=== PATIENT | male | born 1940 | race Caucasian/White ===

== ENCOUNTER 2017-04-11 13:27 | Emergency (ER) | payer OTHER ==
[~2017-04-11] VITALS: Ht 182.9 cm; Wt 102.1 kg
[~2017-04-11 13:27] MED LIST: CITALOPRAM HBR20 MG PO; DIGOXIN125 MCG PO; LOSARTAN POTAS100 MG PO; METFORMIN HCL500 MG PO
[2017-04-11 15:31] LABS: HEMATOCRIT 41.9 % (38.0-50.0); HEMOGLOBIN 13.5 G/DL (12.5-16.6); MCH 28.2 PG (29.0-34.0); MCHC 32.2 G/DL (30.0-36.0); MCV 87.7 FL (86-99); PLATELET COUNT 238 K/uL (156-360); RBC DIS.WIDTH-CV 14.8 % (11.8-14.6); RBC DIS.WIDTH-SD 47.8 % (39-53); RED BLOOD COUNT 4.78 M/uL (4.00-5.50); WHITE BLOOD COUNT 8.6 K/uL (4.1-10.2)
[2017-04-11 15:40] LABS: CHLORIDE 103 mEq/L (99-109); POTASSIUM 4.4 mEq/L (3.7-5.4); SODIUM 140 mEq/L (136-147)
[2017-04-11 15:42] LABS: GLUCOSE 85 mg/dL (70-99)
[2017-04-11 15:46] LABS: CREATININE 1.1 mg/dL (0.6-1.3); GFR ESTIMATE (CALCULATED) > 59 mL/min/ (58.99-99999)
[2017-04-11 15:47] LABS: UREA NITROGEN (BUN) 15 mg/dL (9-23)
[2017-04-11 17:24] VITALS: BP 120/78
== END 2017-04-11 17:24 | disposition home or self-care (01) ==
LOC: EME 13:27
PROVIDERS: Nurse Practitioner Family
DX: R60.0 Localized edema (principal); L40.9 Psoriasis, unspecified; E11.9 Type 2 diabetes mellitus without complications; Z79.84 Long term (current) use of oral hypoglycemic drugs; E78.5 Hyperlipidemia, unspecified; I10 Essential (primary) hypertension; I25.2 Old myocardial infarction; J44.9 Chronic obstructive pulmonary disease, unspecified; Z86.73 Personal history of transient ischemic attack (TIA), and cerebral infarction without residual deficits; Z87.891 Personal history of nicotine dependence
CPT/HCPCS: 80048; 83880; 85027; 93971; 99281; 99284

== ENCOUNTER 2017-04-17 16:02 | Emergency (ER) | payer OTHER ==
[~2017-04-17] VITALS: Ht 182.9 cm; Wt 101.2 kg
[2017-04-17 16:43] LABS: HEMATOCRIT 44.2 % (38.0-50.0); HEMOGLOBIN 14.1 G/DL (12.5-16.6); MCHC 31.9 G/DL (30.0-36.0); MCV 87.9 FL (86-99); PLATELET COUNT 237 K/uL (156-360); RBC DIS.WIDTH-CV 15.1 % (11.8-14.6); RED BLOOD COUNT 5.03 M/uL (4.00-5.50)
[2017-04-17 16:55] LABS: ALBUMIN 3.9 g/dL (3.2-4.8); CHLORIDE 105 mEq/L (99-109); POTASSIUM 5.2 mEq/L (3.7-5.4); SODIUM 136 mEq/L (136-147)
[2017-04-17 16:58] LABS: GLUCOSE 124 mg/dL (70-99); TOTAL PROTEIN 6.8 g/dL (6.4-8.3)
[2017-04-17 17:00] LABS: TOTAL BILIRUBIN 0.6 mg/dL (0.0-1.0)
[2017-04-17 17:01] LABS: CREATININE 1.2 mg/dL (0.6-1.3); GFR ESTIMATE (CALCULATED) > 59 mL/min/ (58.99-99999)
[2017-04-17 17:02] LABS: ALKALINE PHOSPHATASE 111 IU/L (3-129)
[2017-04-17 17:03] LABS: AST (GOT) 15 IU/L (2-34); UREA NITROGEN (BUN) 12 mg/dL (9-23)
[2017-04-17 17:05] LABS: ACETAMINOPHEN (TYLENOL) < 10 mcg/mL (10-30); ALT (GPT) 10 IU/L (3-49); SALICYLATE < 5.0 MG/DL (15-30)
[2017-04-17 18:52] VITALS: BP 141/71
[2017-04-18] MEDS ORDERED: KETOCONAZOLE60 GM TP (12:31)
[2017-04-18] MEDS ORDERED: SILVADENE,SSD,T50 GM TP (12:32)
[2017-04-18] MEDS ORDERED: TRAZODONE HCL50 MG PO ×3 (12:33→12:34)
[2017-04-18] MEDS ORDERED: TRESIBA FL100 UNIT/1 SQ (12:35)
[2017-04-18] MEDS ORDERED: EXELON PATCH9.5 MG TP (12:36)
[2017-04-18] MEDS ORDERED: METOPROLOL SUCC25 MG PO (12:50)
[2017-04-18] MEDS ORDERED: ERGOCALCIF50000 UNIT PO (12:50)
[2017-04-18] MEDS ORDERED: DONEPEZIL HCL5 MG PO (14:49)
== END 2017-04-17 18:55 | disposition home or self-care (01) ==
LOC: EME 16:02
PROVIDERS: Physician Assistant
DX: T44.1X1A Poisoning by other parasympathomimetics [cholinergics], accidental (unintentional), initial encounter (principal); F03.90 Unspecified dementia, unspecified severity, without behavioral disturbance, psychotic disturbance, mood disturbance, and anxiety; E11.9 Type 2 diabetes mellitus without complications; Z79.84 Long term (current) use of oral hypoglycemic drugs; E78.5 Hyperlipidemia, unspecified; I10 Essential (primary) hypertension; J44.9 Chronic obstructive pulmonary disease, unspecified; I25.2 Old myocardial infarction; Z86.73 Personal history of transient ischemic attack (TIA), and cerebral infarction without residual deficits; Z87.891 Personal history of nicotine dependence
CPT/HCPCS: 80053; 85027; 93005; 99281; 99284; G0480

== ENCOUNTER 2017-04-18 10:57 | Observation (INO) | payer OTHER ==
[~2017-04-18] VITALS: Ht 182.9 cm; Wt 99.6 kg
[2017-04-18 12:17] LABS: HEMATOCRIT 43.7 % (38.0-50.0); HEMOGLOBIN 13.9 G/DL (12.5-16.6); MCH 27.9 PG (29.0-34.0); MCHC 31.8 G/DL (30.0-36.0); MCV 87.8 FL (86-99); PLATELET COUNT 231 K/uL (156-360); RBC DIS.WIDTH-CV 15.1 % (11.8-14.6); RBC DIS.WIDTH-SD 48.5 % (39-53); RED BLOOD COUNT 4.98 M/uL (4.00-5.50); WHITE BLOOD COUNT 9.6 K/uL (4.1-10.2)
[2017-04-18 12:26] LABS: CHLORIDE 107 mEq/L (99-109); POTASSIUM 4.6 mEq/L (3.7-5.4); SODIUM 138 mEq/L (136-147)
[2017-04-18] MEDS ORDERED: KETOCONAZOLE60 GM TP (12:31)
[2017-04-18 12:32] LABS: CREATININE 1.1 mg/dL (0.6-1.3); GFR ESTIMATE (CALCULATED) > 59 mL/min/ (58.99-99999)
[2017-04-18] MEDS ORDERED: SILVADENE,SSD,T50 GM TP (12:32)
[2017-04-18 12:33] LABS: UREA NITROGEN (BUN) 11 mg/dL (9-23)
[2017-04-18] MEDS ORDERED: TRAZODONE HCL50 MG PO ×3 (12:33→12:34)
[2017-04-18 12:34] LABS: GLUCOSE 91 mg/dL (70-99)
[2017-04-18] MEDS ORDERED: TRESIBA FL100 UNIT/1 SQ (12:35)
[2017-04-18] MEDS ORDERED: EXELON PATCH9.5 MG TP (12:36)
[2017-04-18] MEDS ORDERED: METOPROLOL SUCC25 MG PO (12:50)
[2017-04-18] MEDS ORDERED: ERGOCALCIF50000 UNIT PO (12:50)
[2017-04-18 13:59] VITALS: BP 147/67
[2017-04-18] MEDS ORDERED: DONEPEZIL HCL5 MG PO (14:49)
[2017-04-18 19:55] VITALS: BP 147/72
[2017-04-19 09:46] LABS: BASOPHIL (%) 0.3 % (0-1); EOSINOPHIL (%) 4.2 % (0-5); EOSINOPHIL COUNT 0.4 K/uL (0-0.3); HEMOGLOBIN 14.9 G/DL (12.5-16.6); IMMATURE GRANULOCYTE (%) 0.3 % (0.0-0.7); LYMPHOCYTE (%) 14.7 % (15-42); LYMPHOCYTE COUNT 1.4 K/uL (1.0-2.8); MCH 26.9 PG (29.0-34.0); MCV 86.6 FL (86-99); MONOCYTE (%) 8.1 % (3-12); MONOCYTE COUNT 0.8 K/uL (0-0.8); NEUTROPHIL (%) 72.4 % (45-76); NEUTROPHIL COUNT 7.1 K/uL (1.8-6.4); PLATELET COUNT 271 K/uL (156-360); RBC DIS.WIDTH-SD 48.3 % (39-53); RED BLOOD COUNT 5.54 M/uL (4.00-5.50); WHITE BLOOD COUNT 9.8 K/uL (4.1-10.2)
[2017-04-19 10:04] LABS: ALBUMIN 4.1 G/DL (3.2-4.8); ALKALINE PHOSPHATASE 101 IU/L (3-129); ALT (GPT) 9 IU/L (3-49); AST (GOT) 16 IU/L (2-34); CHLORIDE 102 MEQ/L (99-109); CREATININE 1.1 MG/DL (0.6-1.3); GFR ESTIMATE (CALCULATED) > 59 mL/min/ (58.99-99999); GLUCOSE 72 mg/dL (70-99); POTASSIUM 4.4 MEQ/L (3.7-5.4); SODIUM 139 MEQ/L (136-147); TOTAL BILIRUBIN 0.8 MG/DL (0.0-1.0); TOTAL PROTEIN 7.2 G/DL (6.4-8.3); UREA NITROGEN (BUN) 13 mg/dL (9-23)
[2017-04-19 11:45] VITALS: BP 120/64
[2017-04-19 19:00] VITALS: BP 160/79
[2017-04-20] VITALS: BP 124/57
[2017-04-20 07:45] VITALS: BP 130/60
[2017-04-20 11:18] VITALS: BP 153/72
== END 2017-04-20 14:26 | disposition home or self-care (01) ==
LOC: EME 10:57 → EDOF 12:31 → 5WEST 12:31 → EDOF 12:31 → ENRESERV 12:33 → 5WEST 13:51 → ENPENDDIS 04-20 → 5WEST 04-20 14:26
PROVIDERS: Emergency Medicine; Family Medicine; Internal Medicine
DX: T47.6X1A Poisoning by antidiarrheal drugs, accidental (unintentional), initial encounter (principal); R29.810 Facial weakness; E86.0 Dehydration; F03.90 Unspecified dementia, unspecified severity, without behavioral disturbance, psychotic disturbance, mood disturbance, and anxiety; I10 Essential (primary) hypertension; E78.5 Hyperlipidemia, unspecified; I25.10 Atherosclerotic heart disease of native coronary artery without angina pectoris; E11.9 Type 2 diabetes mellitus without complications; I25.2 Old myocardial infarction; M19.90 Unspecified osteoarthritis, unspecified site; R26.89 Other abnormalities of gait and mobility; Z79.4 Long term (current) use of insulin; Z86.73 Personal history of transient ischemic attack (TIA), and cerebral infarction without residual deficits; Z87.891 Personal history of nicotine dependence
CPT/HCPCS: 70450; 80048; 80053; 82948; 85025; 85027; 93005; 99281; 99285; G0378

== ENCOUNTER 2017-04-26 18:19 | Inpatient (IN) | payer OTHER ==
[~2017-04-26] VITALS: Ht 182.9 cm; Wt 93.2 kg
[~2017-04-26 18:19] MED LIST changes: +DONEPEZIL HCL5 MG PO; +ERGOCALCIF50000 UNIT PO; +EXELON PATCH9.5 MG TP; +KETOCONAZOLE60 GM TP; +METOPROLOL SUCC25 MG PO; +SILVADENE,SSD,T50 GM TP; +TRAZODONE HCL50 MG PO; +TRESIBA FL100 UNIT/1 SQ
[2017-04-26 19:00] LABS: HEMOGLOBIN 13.7 G/DL (12.5-16.6); MCH 28.1 PG (29.0-34.0); MCHC 32.6 G/DL (30.0-36.0); MCV 86.2 FL (86-99); PLATELET COUNT 246 K/uL (156-360); RBC DIS.WIDTH-CV 15.5 % (11.8-14.6); RBC DIS.WIDTH-SD 48.9 % (39-53); RED BLOOD COUNT 4.87 M/uL (4.00-5.50); WHITE BLOOD COUNT 8.2 K/uL (4.1-10.2)
[2017-04-26 19:12] LABS: CHLORIDE 104 mEq/L (99-109); POTASSIUM 4.6 mEq/L (3.7-5.4); SODIUM 139 mEq/L (136-147)
[2017-04-26 19:13] LABS: GLUCOSE 68 mg/dL (70-99)
[2017-04-26 19:17] LABS: CREATININE 1.2 mg/dL (0.6-1.3); GFR ESTIMATE (CALCULATED) > 59 mL/min/ (58.99-99999); SERUM ETHYL ALCOHOL < 10 mg/dL
[2017-04-26 19:18] LABS: UREA NITROGEN (BUN) 19 mg/dL (9-23)
[2017-04-26 23:02] VITALS: BP 138/95
[2017-04-26] MEDS ORDERED: MOTRIN400 MG PO (23:59)
[2017-04-27 08:09] VITALS: BP 120/63
[2017-04-27 16:18] VITALS: BP 163/70
[2017-04-28 09:10] VITALS: BP 187/83
[2017-04-28 11:09] VITALS: BP 150/58
[2017-04-28 15:44] VITALS: BP 155/69
[2017-04-28 18:54] VITALS: BP 138/63
[2017-04-29 07:52] VITALS: BP 168/74
[2017-04-29 11:36] VITALS: BP 173/74
[2017-04-29 15:34] VITALS: BP 154/72
[2017-04-29 17:56] VITALS: BP 159/70
[2017-04-30 07:29] VITALS: BP 183/77
[2017-04-30 11:35] VITALS: BP 149/67
[2017-04-30 15:35] VITALS: BP 167/77
[2017-04-30 18:49] VITALS: BP 157/68
[2017-05-01 15:50] VITALS: BP 151/69
[2017-05-02 08:00] VITALS: BP 159/72
[2017-05-02 15:05] VITALS: BP 149/66
[2017-05-03 07:40] VITALS: BP 153/70
[2017-05-03 15:20] VITALS: BP 144/67
[2017-05-04 07:57] VITALS: BP 131/63
[2017-05-04 15:36] VITALS: BP 173/72
[2017-05-05 07:40] VITALS: BP 146/65
[2017-05-05 16:06] VITALS: BP 129/61
[2017-05-06 07:58] VITALS: BP 149/68
[2017-05-06 09:24] LABS: BASOPHIL (%) 0.5 % (0-1); EOSINOPHIL (%) 5.2 % (0-5); EOSINOPHIL COUNT 0.4 K/uL (0-0.3); HEMATOCRIT 44.5 % (38.0-50.0); HEMOGLOBIN 14.3 G/DL (12.5-16.6); IMMATURE GRANULOCYTE (%) 0.1 % (0.0-0.7); LYMPHOCYTE (%) 24.2 % (15-42); LYMPHOCYTE COUNT 1.8 K/uL (1.0-2.8); MCH 27.6 PG (29.0-34.0); MCHC 32.1 G/DL (30.0-36.0); MCV 85.7 FL (86-99); MONOCYTE (%) 11.8 % (3-12); MONOCYTE COUNT 0.9 K/uL (0-0.8); NEUTROPHIL (%) 58.2 % (45-76); NEUTROPHIL COUNT 4.4 K/uL (1.8-6.4); PLATELET COUNT 274 K/uL (156-360); RBC DIS.WIDTH-CV 15.6 % (11.8-14.6); RED BLOOD COUNT 5.19 M/uL (4.00-5.50); WHITE BLOOD COUNT 7.6 K/uL (4.1-10.2)
[2017-05-06 09:55] LABS: ALBUMIN 3.9 G/DL (3.2-4.8); ALKALINE PHOSPHATASE 88 IU/L (3-129); ALT (GPT) 11 IU/L (3-49); AST (GOT) 12 IU/L (2-34); CHLORIDE 100 MEQ/L (99-109); CREATININE 1.2 MG/DL (0.6-1.3); GFR ESTIMATE (CALCULATED) > 59 mL/min/ (58.99-99999); GLUCOSE 159 mg/dL (70-99); POTASSIUM 4.6 MEQ/L (3.7-5.4); SODIUM 138 MEQ/L (136-147); TOTAL BILIRUBIN 0.7 MG/DL (0.0-1.0); TOTAL PROTEIN 6.7 G/DL (6.4-8.3); UREA NITROGEN (BUN) 18 mg/dL (9-23)
[2017-05-06 10:56] LABS: DIGOXIN 0.5 ng/mL (0.8-2.0)
[2017-05-06 13:15] LABS: BILIRUBIN NEGATIVE; BLOOD NEGATIVE; COLOR YELLOW ((YELLOW)); GLUCOSE (STRIP) NEGATIVE; KETONES 5; LEUKOCYTES NEGATIVE; NITRITE NEGATIVE; PROTEIN (STRIP) NEGATIVE; SPECIFIC GRAVITY 1.016 (1.000-1.030); UROBILINOGEN 0.2 MG/DL (0.2-1.0)
[2017-05-06 13:18] LABS: APPEARANCE CLEAR ((CLEAR))
[2017-05-06 15:47] VITALS: BP 126/60
[2017-05-07 08:00] VITALS: BP 135/72
[2017-05-07 15:45] VITALS: BP 150/67
[2017-05-08 07:33] VITALS: BP 148/68
[2017-05-08] MEDS ORDERED: CELEXA40 MG PO (10:03)
[2017-05-08] MEDS ORDERED: QUETIAPINE FUMA50 MG PO (10:03)
[2017-05-08] MEDS ORDERED: LORAZEPAM0.5 MG PO (10:04)
== END 2017-05-08 13:57 | disposition home or self-care (01) | DRG 897 ==
LOC: EME 18:19 → EDOF 20:07 → 1WEST 20:07 → ENRESERV 22:08 → 1WEST 22:52
PROVIDERS: Emergency Medicine; Psychiatry & Neurology Psychiatry
DX: F10.27 Alcohol dependence with alcohol-induced persisting dementia (principal); R45.851 Suicidal ideations; E78.5 Hyperlipidemia, unspecified; I10 Essential (primary) hypertension; E11.51 Type 2 diabetes mellitus with diabetic peripheral angiopathy without gangrene; I70.201 Unspecified atherosclerosis of native arteries of extremities, right leg; J44.9 Chronic obstructive pulmonary disease, unspecified; Z86.73 Personal history of transient ischemic attack (TIA), and cerebral infarction without residual deficits; I25.2 Old myocardial infarction; Z87.891 Personal history of nicotine dependence
CPT/HCPCS: 80048; 80053; 80162; 81003; 82948; 85025; 85027; 90837; 97150 GO; 97165 GO; 99281; 99285; G0480; J1815

== ENCOUNTER 2017-05-31 00:33 | Inpatient (IN) | payer OTHER ==
[~2017-05-31] VITALS: Ht 182.9 cm; Wt 83.0 kg
[~2017-05-31 00:33] MED LIST changes: +CELEXA40 MG PO; +LORAZEPAM0.5 MG PO; +MOTRIN400 MG PO; +QUETIAPINE FUMA50 MG PO
[2017-05-31 01:48] LABS: BASOPHIL (%) 0.4 % (0-1); EOSINOPHIL (%) 10.6 % (0-5); EOSINOPHIL COUNT 0.9 K/uL (0-0.3); HEMATOCRIT 42.4 % (38.0-50.0); HEMOGLOBIN 13.7 G/DL (12.5-16.6); IMMATURE GRANULOCYTE (%) 0.5 % (0.0-0.7); LYMPHOCYTE (%) 25.3 % (15-42); LYMPHOCYTE COUNT 2.1 K/uL (1.0-2.8); MCH 28.2 PG (29.0-34.0); MCHC 32.3 G/DL (30.0-36.0); MCV 87.4 FL (86-99); MONOCYTE (%) 9.4 % (3-12); MONOCYTE COUNT 0.8 K/uL (0-0.8); NEUTROPHIL (%) 53.8 % (45-76); NEUTROPHIL COUNT 4.4 K/uL (1.8-6.4); PLATELET COUNT 224 K/uL (156-360); RBC DIS.WIDTH-CV 15.8 % (11.8-14.6); RBC DIS.WIDTH-SD 51.3 % (39-53); RED BLOOD COUNT 4.85 M/uL (4.00-5.50); WHITE BLOOD COUNT 8.2 K/uL (4.1-10.2)
[2017-05-31 01:59] LABS: CHLORIDE 101 mEq/L (99-109); POTASSIUM 4.8 mEq/L (3.7-5.4); SODIUM 138 mEq/L (136-147)
[2017-05-31 02:00] LABS: GLUCOSE 131 mg/dL (70-99)
[2017-05-31 02:04] LABS: CREATININE 1.2 mg/dL (0.6-1.3); GFR ESTIMATE (CALCULATED) > 59 mL/min/ (58.99-99999)
[2017-05-31 02:05] LABS: UREA NITROGEN (BUN) 18 mg/dL (9-23)
[2017-05-31 05:30] LABS: SERUM ETHYL ALCOHOL < 10 mg/dL
[2017-05-31 09:37] LABS: AMPHETAMINE NEGATIVE (500 ng/mL); BARBITURATES NEGATIVE (200 ng/mL); BENZODIAZEPINES PRESUMPTIVE POSITIVE (150 ng/mL); BUPRENORPHINE NEGATIVE (10 ng/mL); COCAINE NEGATIVE (150 ng/mL); METHADONE NEGATIVE (200 ng/mL); METHAMPHETAMINE NEGATIVE (500 ng/mL); OPIATES (MORPHINE) NEGATIVE (100 ng/mL); OXYCODONE NEGATIVE (100 ng/mL); PHENCYCLIDINE NEGATIVE (25 ng/mL); PROPOXYPHENE NEGATIVE (300 ng/mL); THC CANNABINOIDS NEGATIVE (50 ng/mL); TRICYCLIC ANTIDEPRESSANTS PRESUMPTIVE POSITIVE (300 ng/mL)
[2017-05-31 09:57] LABS: BENZODIAZEPINES, URINE SCREEN Negative (200 ng/mL)
[2017-05-31 11:12] LABS: APPEARANCE CLEAR ((CLEAR)); BILIRUBIN NEGATIVE; BLOOD NEGATIVE; COLOR YELLOW ((YELLOW)); GLUCOSE (STRIP) NEGATIVE; KETONES NEGATIVE; LEUKOCYTES NEGATIVE; NITRITE NEGATIVE; PROTEIN (STRIP) NEGATIVE; SPECIFIC GRAVITY 1.014 (1.000-1.030); UCUL ADDED? NO; UROBILINOGEN 0.2 MG/DL (0.2-1.0)
[2017-05-31 17:00] VITALS: BP 162/72
[2017-05-31 17:06] VITALS: BP 162/72
[2017-06-01 08:09] VITALS: BP 118/64
[2017-06-01 15:32] VITALS: BP 123/60
[2017-06-02 08:06] VITALS: BP 125/58
[2017-06-02 15:42] VITALS: BP 133/57
[2017-06-03 07:47] VITALS: BP 146/65
[2017-06-03 15:33] VITALS: BP 111/56
[2017-06-04 11:20] VITALS: BP 142/64
[2017-06-04 16:13] VITALS: BP 112/56
[2017-06-05 15:40] VITALS: BP 126/58
[2017-06-06 07:52] VITALS: BP 136/67
[2017-06-06 15:36] VITALS: BP 99/51
[2017-06-07 07:56] VITALS: BP 88/52
[2017-06-07 15:29] VITALS: BP 114/53
[2017-06-08 07:39] VITALS: BP 111/56
[2017-06-08 15:52] VITALS: BP 87/51
[2017-06-09 07:29] VITALS: BP 107/53
[2017-06-09 15:28] VITALS: BP 110/56
[2017-06-10 09:09] VITALS: BP 138/64
[2017-06-10 16:07] VITALS: BP 127/55
[2017-06-11 07:32] VITALS: BP 122/55
[2017-06-11 15:36] VITALS: BP 112/56
[2017-06-12 08:46] VITALS: BP 105/52
[2017-06-12] MEDS ORDERED: DOCUSATE SODIU100 MG PO (09:56)
[2017-06-12] MEDS ORDERED: KETOCONAZOLE60 GM TP (09:56)
[2017-06-12] MEDS ORDERED: SEROQUEL100 MG PO (09:56)
[2017-06-12] MEDS ORDERED: HALDOL1 MG PO (09:56)
[2017-06-12] MEDS ORDERED: NYSTATIN15 GM TP (09:56)
== END 2017-06-12 15:43 | disposition home or self-care (01) | DRG 57 ==
LOC: EME → EDBD 00:33 → EME 00:33 → 1WEST 16:05 → EDOF 16:05 → ENRESERV 16:53 → 1WEST 16:55
PROVIDERS: Emergency Medicine; Psychiatry & Neurology Psychiatry
DX: G30.9 Alzheimer's disease, unspecified (principal); F01.51 Vascular dementia, unspecified severity, with behavioral disturbance; F02.81 Dementia in other diseases classified elsewhere, unspecified severity, with behavioral disturbance; F05 Delirium due to known physiological condition; F33.9 Major depressive disorder, recurrent, unspecified; F10.20 Alcohol dependence, uncomplicated; Y90.9 Presence of alcohol in blood, level not specified; I67.2 Cerebral atherosclerosis; G47.00 Insomnia, unspecified; E11.9 Type 2 diabetes mellitus without complications; E78.5 Hyperlipidemia, unspecified; I10 Essential (primary) hypertension; J43.9 Emphysema, unspecified; Z86.73 Personal history of transient ischemic attack (TIA), and cerebral infarction without residual deficits; Z87.891 Personal history of nicotine dependence; Z91.5 Personal history of self-harm
CPT/HCPCS: 71045; 80048; 81003; 82948; 84999; 85025; 87086; 90837; 93005; 97166 GO; 99281; 99285; G0480